=== PATIENT | male | born 1945 | race Caucasian/White ===

== ENCOUNTER 2021-10-02 18:46 | Inpatient (IN) | payer MEDICARE ==
[2021-10-02] MEDS ORDERED: Clindamycin/D5W 900 mg/50 ml Premix Bag ONE (19:26)
[2021-10-02] MEDS ORDERED: Morphine 4 MG/ML VIAL ONE (19:26)
[2021-10-02] MEDS ORDERED: Ondansetron PF 4 MG/2 ML Vial ONE (19:26)
[2021-10-02 19:50] LABS: #Basophils 0.1 thou/uL (0.0-0.2); #Lymphocytes 0.6 thou/uL (1.20-3.40); #Monocytes 1.6 thou/uL (0.11-0.59); #Neutrophils 16.4 thou/uL (1.40-6.50); %Basophils 0.5 % (0.0-1.0); %Eosinophils 0.1 % (0.0-10.0); %Lymphocytes 3.3 % (21.0-51.0); %Monocytes 8.7 % (0.0-10.0); %Neutrophils 87.5 % (42.0-75.0); Mean Corpuscular HGB CONC 32.2 g/dL (32.0-36.0); Mean Corpuscular Hemoglobin 29.6 pg (27.0-31.0); Mean Corpuscular Volume 91.8 fL (78.0-98.0); Mean Platelet Volume 7.9 fL (7.4-10.4); Platelet Count 222 thou/uL (130-400); RBC Distribution Width 13.8 % (11.5-14.5); Red Blood Cell (RBC) Count 5.41 mill/uL (4.70-6.10); White Blood Cell (WBC) Count 18.7 thou/uL (4.8-10.8)
[2021-10-02 20:12] LABS: ALT (SGPT) 44 U/L (8-55); AST (SGOT) 32 U/L (5-34); Alkaline Phosphatase 139 U/L (40-110); Anion Gap 22 mmol/L (10-20); BUN (Urea Nitrogen) 102 mg/dL (8.4-25.7); Bilirubin, Total 0.9 mg/dL (0.2-1.2); Calc. Creatinine Clearance 0 mL/min (70-130); Calcium 10.1 mg/dL (7.8-10.44); Carbon Dioxide 19 mmol/L (23-31); Chloride 101 mmol/L (98-107); Globulin 4.9 g/dL (2.4-3.5); Glucose 171 mg/dL (83-110); Protein, Total 8.9 g/dL (5.8-8.1); Sodium 137 mmol/L (136-145)
[2021-10-02] MEDS ORDERED: Cefepime 2 GM VIAL ONE (20:32)
[2021-10-02 20:40] LABS: Bilirubin Negative (Negative); Blood, Urine 2+ (Negative); Clarity Extra Turbid (Clear); Glucose, Urine (Dipstick) Normal (Negative); Ketone, Urine Negative (Negative); Leukocyte 500 Leu/uL (Negative); Nitrite Negative (Negative); Protein, Urine (Dipstick) 100 mg/dL (Neg-Trace); Squamous Epithelial None Seen HPF (0-3); Urobilinogen Normal mg/dL (Less than 2); pH, Urine 5.5 (5.0-9.0)
[2021-10-02 20:48] LABS: Bacteria/HPF 2+ HPF (None Seen); WBC/HPF Greater than 50 HPF (0-3)
[2021-10-02] MEDS ORDERED: Vancomycin 1 GM/200 ML BAG ONE (21:29)
[2021-10-02 22:57] LABS: Lactic Acid 1.7 mmol/L (0.5-2.2)
[2021-10-03] MEDS ORDERED: traMADol HCl 50 MG TAB PO SCH (02:13)
[2021-10-03 02:32] LABS: SARS-CoV-2 NAA Rapid Test Not Detected (NotDetected)
[2021-10-03] MEDS ORDERED: Dextrose 50% Abboject 50 ML SYRINGE SLOW IVP PRN (03:38)
[2021-10-03] MEDS ORDERED: Dextrose 5% in Water 1,000 ML IV PRN (03:38)
[2021-10-03] MEDS ORDERED: Ondansetron ODT 4 MG TAB PO PRN (03:40)
[2021-10-03] MEDS ORDERED: Ondansetron PF 4 MG/2 ML Vial IVP PRN (03:40)
[2021-10-03] MEDS ORDERED: Acetaminophen 650 MG Suppository PR PRN (03:40)
[2021-10-03] MEDS ORDERED: Senokot S 8.6-50 MG TAB PO PRN (03:40)
[2021-10-03] MEDS ORDERED: Acetaminophen 325 MG TAB PO PRN (03:40)
[2021-10-03] MEDS ORDERED: Vancomycin HCl 750 MG in Sodium Chloride 0.9% 250 ML 250 ML IVPB SCH (04:00)
[2021-10-03 04:24] LABS: SARS-CoV-2 NAA Rapid Test Not Detected (NotDetected)
[2021-10-03 06:24] LABS: Hemoglobin A1c 11.1 % (4.0-6.0)
[2021-10-03] MEDS ORDERED: Sodium Bicarbonate 75 MEQ in Sodium Chloride 0.45% 1,000 ML IV SCH (07:30)
[2021-10-03] MEDS: Famotidine/PF 20 mg/2ml Vial SLOW IVP SCH (09:19)
[2021-10-03] MEDS: Heparin 5,000 UNITS/ML VIAL SC SCH ×2 (09:19→19:59)
[2021-10-03 14:21] LABS: Hemoglobin 13.4 g/dL (14.0-18.0); Mean Corpuscular HGB CONC 32.8 g/dL (32.0-36.0); Mean Corpuscular Hemoglobin 30.1 pg (27.0-31.0); Mean Corpuscular Volume 91.7 fL (78.0-98.0); Mean Platelet Volume 8.2 fL (7.4-10.4); Platelet Count 173 thou/uL (130-400); RBC Distribution Width 13.9 % (11.5-14.5); Red Blood Cell (RBC) Count 4.45 mill/uL (4.70-6.10); White Blood Cell (WBC) Count 18.4 thou/uL (4.8-10.8)
[2021-10-03 14:34] LABS: Phosphorus 5.6 mg/dL (2.3-4.7)
[2021-10-03 14:47] LABS: Band 13 % (5-11); Lymphocytes 7 % (21-51); MDiff Complete? YES; Monocytes 6 % (0-10); Neutrophil 74 % (42-75); Platelet Morphology Comment Appears Adequate; RBC Morphology Normal
[2021-10-03 14:59] LABS: ALT (SGPT) 32 U/L (8-55); AST (SGOT) 28 U/L (5-34); Alkaline Phosphatase 109 U/L (40-110); Anion Gap 20 mmol/L (10-20); BUN (Urea Nitrogen) 113 mg/dL (8.4-25.7); Bilirubin, Total 0.5 mg/dL (0.2-1.2); Calc. Creatinine Clearance 0 mL/min (70-130); Calcium 8.2 mg/dL (7.8-10.44); Carbon Dioxide 16 mmol/L (23-31); Chloride 105 mmol/L (98-107); Globulin 3.6 g/dL (2.4-3.5); Glucose 200 mg/dL (83-110); Magnesium 2.1 mg/dL (1.6-2.6); Potassium 5.8 mmol/L (3.5-5.1); Protein, Total 6.6 g/dL (5.8-8.1); Sodium 135 mmol/L (136-145)
[2021-10-03] MEDS ORDERED: Dextrose 50% Abboject 50 ML SYRINGE SLOW IVP SCH (16:53)
[2021-10-03] MEDS ORDERED: Insulin Regular 300 UNITS/3 ML VIAL IVP SCH (16:54)
[2021-10-03] MEDS ORDERED: Sodium Bicarbonate 150 MEQ in Sterile Water Injection 1,000 ML IV SCH (17:00)
[2021-10-03] MEDS: Sodium Bicarbonate 150 MEQ in Sterile Water Injection 1,000 ML IV SCH (18:43)
[2021-10-03] MEDS: Cefepime 1 GM in Sodium Chloride 0.9% 100 ML IVPB SCH (20:00)
[2021-10-03] MEDS ORDERED: traMADol HCl 50 MG TAB PO PRN (21:39)
[2021-10-03] MEDS ORDERED: HYDROcodone/Acetaminophen 5/325 mg Tablet PO SCH (22:30)
[2021-10-03 22:39] LABS: Anion Gap 19 mmol/L (10-20); BUN (Urea Nitrogen) 108 mg/dL (8.4-25.7); Calc. Creatinine Clearance 0 mL/min (70-130); Carbon Dioxide 21 mmol/L (23-31); Chloride 102 mmol/L (98-107); Glucose 122 mg/dL (83-110); Potassium 4.3 mmol/L (3.5-5.1); Sodium 138 mmol/L (136-145)
[2021-10-04 07:00] LABS: #Eosinphils 0.2 thou/uL (0.0-0.7); #Lymphocytes 0.7 thou/uL (1.20-3.40); #Neutrophils 10.4 thou/uL (1.40-6.50); %Basophils 0.2 % (0.0-1.0); %Eosinophils 1.6 % (0.0-10.0); %Lymphocytes 5.7 % (21.0-51.0); %Monocytes 8.1 % (0.0-10.0); %Neutrophils 84.5 % (42.0-75.0); Hemoglobin 13.1 g/dL (14.0-18.0); Mean Corpuscular HGB CONC 32.2 g/dL (32.0-36.0); Mean Corpuscular Hemoglobin 29.6 pg (27.0-31.0); Mean Platelet Volume 7.9 fL (7.4-10.4); Platelet Count 176 thou/uL (130-400); RBC Distribution Width 13.9 % (11.5-14.5); Red Blood Cell (RBC) Count 4.41 mill/uL (4.70-6.10); White Blood Cell (WBC) Count 12.4 thou/uL (4.8-10.8)
[2021-10-04 07:19] LABS: ALT (SGPT) 44 U/L (8-55); AST (SGOT) 51 U/L (5-34); Albumin 2.8 g/dL (3.4-4.8); Alkaline Phosphatase 124 U/L (40-110); Anion Gap 21 mmol/L (10-20); BUN (Urea Nitrogen) 105 mg/dL (8.4-25.7); Bilirubin, Total 0.5 mg/dL (0.2-1.2); Calc. Creatinine Clearance 26 mL/min (70-130); Calcium 7.8 mg/dL (7.8-10.44); Carbon Dioxide 23 mmol/L (23-31); Chloride 99 mmol/L (98-107); Globulin 3.6 g/dL (2.4-3.5); Glucose 144 mg/dL (83-110); Potassium 3.9 mmol/L (3.5-5.1); Protein, Total 6.4 g/dL (5.8-8.1); Sodium 139 mmol/L (136-145)
[2021-10-04] MEDS: Heparin 5,000 UNITS/ML VIAL SC SCH ×2 (09:07→21:29)
[2021-10-04] MEDS: Famotidine/PF 20 mg/2ml Vial SLOW IVP SCH (09:07)
[2021-10-04] MEDS: Vancomycin 1 GM in Premix Bag 1 BAG IVPB SCH (09:07)
[2021-10-04] MEDS: Sodium Bicarbonate 150 MEQ in Sterile Water Injection 1,000 ML IV SCH ×2 (12:46→22:08)
[2021-10-04] MEDS: HYDROcodone/Acetaminophen 5/325 mg Tablet PO PRN (16:13)
[2021-10-04] MEDS: HumaLOG 300 UNITS/3 ML VIAL SC PRN (16:15)
[2021-10-04] MEDS: Cefepime 1 GM in Sodium Chloride 0.9% 100 ML IVPB SCH (21:30)
[2021-10-05] MEDS ORDERED: Sodium Bicarbonate 150 MEQ in Sterile Water Injection 1,000 ML IV SCH ×2 (09:00→13:44)
[2021-10-05] MEDS ORDERED: Piperacillin/Tazobactam 3.375 GM in Sodium Chloride 0.9% 100 ML IVPB SCH ×3 (09:00→14:00)
[2021-10-05] MEDS: Heparin 5,000 UNITS/ML VIAL SC SCH ×2 (10:03→21:46)
[2021-10-05] MEDS: Famotidine/PF 20 mg/2ml Vial SLOW IVP SCH (10:04)
[2021-10-05] MEDS: Vancomycin 1 GM in Premix Bag 1 BAG IVPB SCH (10:04)
[2021-10-05] MEDS: HumaLOG 300 UNITS/3 ML VIAL SC PRN ×3 (12:02→21:47)
[2021-10-05 12:17] LABS: Albumin 2.8 g/dL (3.4-4.8); Anion Gap 21 mmol/L (10-20); BUN (Urea Nitrogen) 91 mg/dL (8.4-25.7); BUN/Creatinine Ratio 32.85; Calc. Creatinine Clearance 29 mL/min (70-130); Calcium 7.9 mg/dL (7.8-10.44); Carbon Dioxide 28 mmol/L (23-31); Chloride 95 mmol/L (98-107); Glucose 177 mg/dL (83-110); Phosphorus 3.8 mg/dL (2.3-4.7); Potassium 3.7 mmol/L (3.5-5.1); Sodium 140 mmol/L (136-145)
[2021-10-05] MEDS: Lactated Ringer's 1,000 ML IV SCH (16:32)
[2021-10-05] MEDS: Carvedilol 3.125 MG TAB PO SCH (16:56)
[2021-10-05] MEDS ORDERED: Carvedilol 3.125 MG TAB PO SCH (17:00)
[2021-10-05] MEDS: Atorvastatin Calcium 40 MG TAB PO SCH (21:47)
[2021-10-06] MEDS ORDERED: Lorazepam 2 MG/ML VIAL SLOW IVP SCH (00:45)
[2021-10-06] MEDS ORDERED: OLANZapine 10 MG VIAL IM SCH (04:00)
[2021-10-06] MEDS ORDERED: Sterile Water 10 ML VIAL FS PRN (04:00)
[2021-10-06 05:28] LABS: #Eosinphils 0.1 thou/uL (0.0-0.7); #Lymphocytes 1.1 thou/uL (1.20-3.40); #Neutrophils 10.3 thou/uL (1.40-6.50); %Basophils 0.4 % (0.0-1.0); %Eosinophils 0.4 % (0.0-10.0); %Monocytes 7.9 % (0.0-10.0); %Neutrophils 82.3 % (42.0-75.0); Hemoglobin 13.7 g/dL (14.0-18.0); Mean Corpuscular Hemoglobin 29.5 pg (27.0-31.0); Mean Platelet Volume 7.7 fL (7.4-10.4); Platelet Count 179 thou/uL (130-400); RBC Distribution Width 13.8 % (11.5-14.5); Red Blood Cell (RBC) Count 4.65 mill/uL (4.70-6.10); White Blood Cell (WBC) Count 12.5 thou/uL (4.8-10.8)
[2021-10-06 05:40] LABS: Albumin 2.8 g/dL (3.4-4.8); Anion Gap 24 mmol/L (10-20); BUN (Urea Nitrogen) 87 mg/dL (8.4-25.7); BUN/Creatinine Ratio 34.66; Calc. Creatinine Clearance 32 mL/min (70-130); Carbon Dioxide 24 mmol/L (23-31); Chloride 99 mmol/L (98-107); Glucose 180 mg/dL (83-110); Phosphorus 3.6 mg/dL (2.3-4.7); Potassium 3.9 mmol/L (3.5-5.1); Sodium 143 mmol/L (136-145)
[2021-10-06] MEDS: HumaLOG 300 UNITS/3 ML VIAL SC PRN (07:31)
[2021-10-06] MEDS ORDERED: Carvedilol 3.125 MG TAB PO SCH (08:38)
[2021-10-06] MEDS ORDERED: Carvedilol 6.25 MG TAB PO SCH (08:45)
[2021-10-06] MEDS: Vancomycin 1 GM in Premix Bag 1 BAG IVPB SCH (10:50)
[2021-10-06] MEDS: HYDROcodone/Acetaminophen 5/325 mg Tablet PO PRN ×2 (10:51→20:19)
[2021-10-06] MEDS: Famotidine/PF 20 mg/2ml Vial SLOW IVP SCH (10:51)
[2021-10-06] MEDS: Aspirin 81 mg Enteric Coated Tablet PO SCH (10:55)
[2021-10-06] MEDS: Lactated Ringer's 1,000 ML IV SCH ×2 (10:55→23:05)
[2021-10-06] MEDS: Carvedilol 3.125 MG TAB PO SCH (10:57)
[2021-10-06] MEDS: Heparin 5,000 UNITS/ML VIAL SC SCH ×2 (10:59→20:20)
[2021-10-06] MEDS: Atorvastatin Calcium 40 MG TAB PO SCH (20:19)
[2021-10-06] MEDS: Lantus 1000 UNITS/10 ML VIAL SC SCH (20:30)
[2021-10-06] MEDS: Carvedilol 6.25 MG TAB PO SCH (21:01)
[2021-10-07] MEDS: HYDROcodone/Acetaminophen 5/325 mg Tablet PO PRN ×2 (02:45→19:53)
[2021-10-07 05:12] LABS: #Basophils 0.1 thou/uL (0.0-0.2); #Eosinphils 0.3 thou/uL (0.0-0.7); #Lymphocytes 1.2 thou/uL (1.20-3.40); #Monocytes 0.8 thou/uL (0.11-0.59); %Basophils 0.4 % (0.0-1.0); %Eosinophils 2.4 % (0.0-10.0); %Lymphocytes 8.8 % (21.0-51.0); %Monocytes 5.8 % (0.0-10.0); %Neutrophils 82.7 % (42.0-75.0); Hemoglobin 13.2 g/dL (14.0-18.0); Mean Corpuscular HGB CONC 31.4 g/dL (32.0-36.0); Mean Corpuscular Hemoglobin 29.7 pg (27.0-31.0); Mean Corpuscular Volume 94.7 fL (78.0-98.0); Mean Platelet Volume 7.8 fL (7.4-10.4); Platelet Count 177 thou/uL (130-400); RBC Distribution Width 13.7 % (11.5-14.5); Red Blood Cell (RBC) Count 4.46 mill/uL (4.70-6.10); White Blood Cell (WBC) Count 13.3 thou/uL (4.8-10.8)
[2021-10-07 05:29] LABS: Anion Gap 17 mmol/L (10-20); BUN (Urea Nitrogen) 72 mg/dL (8.4-25.7); BUN/Creatinine Ratio 33.18; Calc. Creatinine Clearance 39 mL/min (70-130); Calcium 8.3 mg/dL (7.8-10.44); Carbon Dioxide 31 mmol/L (23-31); Chloride 102 mmol/L (98-107); Glucose 229 mg/dL (83-110); Phosphorus 3.3 mg/dL (2.3-4.7); Potassium 4.2 mmol/L (3.5-5.1); Sodium 146 mmol/L (136-145)
[2021-10-07] MEDS: HumaLOG 300 UNITS/3 ML VIAL SC PRN ×2 (05:44→21:43)
[2021-10-07] MEDS: Carvedilol 6.25 MG TAB PO SCH ×2 (09:29→21:53)
[2021-10-07] MEDS: Aspirin 81 mg Enteric Coated Tablet PO SCH (09:30)
[2021-10-07] MEDS: Heparin 5,000 UNITS/ML VIAL SC SCH ×2 (09:31→21:38)
[2021-10-07] MEDS: Famotidine/PF 20 mg/2ml Vial SLOW IVP SCH (09:31)
[2021-10-07] MEDS: Vancomycin 1 GM in Premix Bag 1 BAG IVPB SCH (09:32)
[2021-10-07] MEDS ORDERED: ePHEDrine 50 MG/ML VIAL ONE (11:00)
[2021-10-07] MEDS ORDERED: PROPOFOL 200 MG/20 ML VIAL ONE (11:00)
[2021-10-07] MEDS: Lactated Ringer's 1,000 ML IV SCH (16:29)
[2021-10-07] MEDS ORDERED: Lorazepam 0.5 MG TAB PO SCH (20:57)
[2021-10-07] MEDS: Lantus 1000 UNITS/10 ML VIAL SC SCH (21:42)
[2021-10-07] MEDS: Atorvastatin Calcium 40 MG TAB PO SCH (21:44)
[2021-10-07] MEDS: Phenazopyridine HCl 100 MG TAB PO PRN (22:55)
[2021-10-07] MEDS ORDERED: Sterile Water 10 ML VIAL FS PRN (23:45)
[2021-10-07] MEDS ORDERED: OLANZapine 10 MG VIAL IM SCH (23:45)
[2021-10-08] MEDS: HYDROcodone/Acetaminophen 5/325 mg Tablet PO PRN ×5 (00:19→22:37)
[2021-10-08] MEDS: Lactated Ringer's 1,000 ML IV SCH ×4 (05:47→15:33)
[2021-10-08] MEDS: HumaLOG 300 UNITS/3 ML VIAL SC PRN ×2 (05:53→20:33)
[2021-10-08 11:21] LABS: #Eosinphils 0.2 thou/uL (0.0-0.7); #Lymphocytes 1.8 thou/uL (1.20-3.40); #Monocytes 0.7 thou/uL (0.11-0.59); #Neutrophils 7.8 thou/uL (1.40-6.50); %Basophils 0.4 % (0.0-1.0); %Eosinophils 2.4 % (0.0-10.0); %Lymphocytes 16.7 % (21.0-51.0); %Monocytes 6.7 % (0.0-10.0); %Neutrophils 73.8 % (42.0-75.0); Hemoglobin 13.4 g/dL (14.0-18.0); Mean Corpuscular HGB CONC 30.3 g/dL (32.0-36.0); Mean Corpuscular Hemoglobin 28.9 pg (27.0-31.0); Mean Corpuscular Volume 95.5 fL (78.0-98.0); Mean Platelet Volume 7.6 fL (7.4-10.4); Platelet Count 150 thou/uL (130-400); RBC Distribution Width 13.6 % (11.5-14.5); Red Blood Cell (RBC) Count 4.63 mill/uL (4.70-6.10); White Blood Cell (WBC) Count 10.5 thou/uL (4.8-10.8)
[2021-10-08 11:38] LABS: Vancomycin, Trough 13.6 ug/mL
[2021-10-08 11:40] LABS: Anion Gap 15 mmol/L (10-20); BUN (Urea Nitrogen) 64 mg/dL (8.4-25.7); BUN/Creatinine Ratio 31.07; Calc. Creatinine Clearance 42 mL/min (70-130); Calcium 8.1 mg/dL (7.8-10.44); Carbon Dioxide 32 mmol/L (23-31); Chloride 101 mmol/L (98-107); Glucose 134 mg/dL (83-110); Phosphorus 3.4 mg/dL (2.3-4.7); Potassium 3.7 mmol/L (3.5-5.1); Sodium 144 mmol/L (136-145)
[2021-10-08] MEDS: Heparin 5,000 UNITS/ML VIAL SC SCH ×2 (11:46→20:33)
[2021-10-08] MEDS: Famotidine/PF 20 mg/2ml Vial SLOW IVP SCH (11:48)
[2021-10-08] MEDS: Aspirin 81 mg Enteric Coated Tablet PO SCH (11:48)
[2021-10-08] MEDS: Vancomycin 1 GM in Premix Bag 1 BAG IVPB SCH (11:50)
[2021-10-08] MEDS ORDERED: Vancomycin 1 GM in Premix Bag 1 BAG IVPB SCH ×2 (12:30→16:00)
[2021-10-08] MEDS: Carvedilol 6.25 MG TAB PO SCH (13:34)
[2021-10-08] MEDS: Carvedilol 25 MG TAB PO SCH (16:26)
[2021-10-08] MEDS: Lantus 1000 UNITS/10 ML VIAL SC SCH (20:33)
[2021-10-08] MEDS: Atorvastatin Calcium 40 MG TAB PO SCH (20:34)
[2021-10-08] MEDS: Sodium Chloride 0.9% 1,000 ML IV SCH (20:34)
[2021-10-08] MEDS: Famotidine 20 MG TAB PO SCH (20:34)
[2021-10-09] MEDS: HYDROcodone/Acetaminophen 5/325 mg Tablet PO PRN ×3 (03:25→17:57)
[2021-10-09] MEDS: Sodium Chloride 0.9% 1,000 ML IV SCH ×2 (05:38→17:58)
[2021-10-09 06:05] LABS: Albumin 2.8 g/dL (3.4-4.8); Anion Gap 19 mmol/L (10-20); BUN (Urea Nitrogen) 64 mg/dL (8.4-25.7); BUN/Creatinine Ratio 27.59; Calc. Creatinine Clearance 38 mL/min (70-130); Calcium 7.8 mg/dL (7.8-10.44); Carbon Dioxide 25 mmol/L (23-31); Chloride 102 mmol/L (98-107); Glucose 266 mg/dL (83-110); Phosphorus 3.6 mg/dL (2.3-4.7); Potassium 4.6 mmol/L (3.5-5.1); Sodium 141 mmol/L (136-145)
[2021-10-09] MEDS: HumaLOG 300 UNITS/3 ML VIAL SC PRN (06:23)
[2021-10-09 09:22] LABS: Hemoglobin 13.1 g/dL (14.0-18.0); Mean Corpuscular HGB CONC 30.9 g/dL (32.0-36.0); Mean Corpuscular Hemoglobin 29.5 pg (27.0-31.0); Mean Corpuscular Volume 95.5 fL (78.0-98.0); Mean Platelet Volume 7.7 fL (7.4-10.4); Platelet Count 157 thou/uL (130-400); RBC Distribution Width 13.7 % (11.5-14.5); Red Blood Cell (RBC) Count 4.45 mill/uL (4.70-6.10); White Blood Cell (WBC) Count 14.8 thou/uL (4.8-10.8)
[2021-10-09] MEDS ORDERED: Lantus 1000 UNITS/10 ML VIAL SC SCH (09:45)
[2021-10-09] MEDS: Carvedilol 25 MG TAB PO SCH ×3 (09:48→18:00)
[2021-10-09] MEDS: Aspirin 81 mg Enteric Coated Tablet PO SCH (09:49)
[2021-10-09] MEDS: Heparin 5,000 UNITS/ML VIAL SC SCH ×2 (09:49→20:36)
[2021-10-09 10:34] LABS: #Basophils 0.1 thou/uL (0.0-0.2); #Eosinphils 0.4 thou/uL (0.0-0.7); #Lymphocytes 2.2 thou/uL (1.20-3.40); #Neutrophils 11.1 thou/uL (1.40-6.50); %Basophils 0.4 % (0.0-1.0); %Eosinophils 2.8 % (0.0-10.0); %Lymphocytes 15.1 % (21.0-51.0); %Monocytes 6.5 % (0.0-10.0); %Neutrophils 75.3 % (42.0-75.0)
[2021-10-09 10:35] LABS: Band 3 % (5-11); Eosinophils 5 % (0-10); Lymphocytes 18 % (21-51); MDiff Complete? YES; Monocytes 6 % (0-10); Neutrophil 68 % (42-75); RBC Morphology Normal
[2021-10-09 18:47] LABS: SARS-CoV-2 PCR by NAA Not Detected (NotDetected)
[2021-10-09] MEDS: Famotidine 20 MG TAB PO SCH (20:36)
[2021-10-09] MEDS: Atorvastatin Calcium 40 MG TAB PO SCH (20:36)
[2021-10-09 21:23] LABS: Vancomycin, Random 14.9 ug/mL (See Comment)
[2021-10-09] MEDS ORDERED: Vancomycin HCl 750 MG in Sodium Chloride 0.9% 250 ML 250 ML IVPB SCH (22:00)
[2021-10-10] MEDS: HYDROcodone/Acetaminophen 5/325 mg Tablet PO PRN ×3 (00:09→23:28)
[2021-10-10] MEDS: Sodium Chloride 0.9% 1,000 ML IV SCH ×3 (05:07→21:26)
[2021-10-10] MEDS ORDERED: Lantus 1000 UNITS/10 ML VIAL SC SCH (09:00)
[2021-10-10] MEDS: Aspirin 81 mg Enteric Coated Tablet PO SCH (09:05)
[2021-10-10] MEDS: Carvedilol 25 MG TAB PO SCH ×2 (09:05→16:43)
[2021-10-10] MEDS: Phenazopyridine HCl 100 MG TAB PO PRN (09:05)
[2021-10-10] MEDS ORDERED: Xylocaine 1% w/ Epi 1:100K 10 ML VIAL ONE (12:23)
[2021-10-10] MEDS ORDERED: Bupivacaine PF 0.5% 30 ML VIAL ONE (12:23)
[2021-10-10] MEDS ORDERED: Fentanyl 100 MCG/2 ML VIAL ONE (12:25)
[2021-10-10] MEDS ORDERED: Ondansetron PF 4 MG/2 ML Vial ONE (12:46)
[2021-10-10] MEDS ORDERED: PROPOFOL 200 MG/20 ML VIAL ONE (12:46)
[2021-10-10] MEDS ORDERED: PHENYLEPHRINE-NS 100 MCG/ML 10 ML SYRINGE ONE (12:46)
[2021-10-10] MEDS ORDERED: ePHEDrine 50 MG/ML VIAL ONE (12:46)
[2021-10-10] MEDS ORDERED: Lidocaine 1% PF 5 ML VIAL ONE (12:46)
[2021-10-10] MEDS ORDERED: Promethazine HCl 25 MG/ML VIAL IM PRN (14:12)
[2021-10-10] MEDS ORDERED: Ondansetron HCl/PF 4 MG/2 ML Vial IVP PRN (14:12)
[2021-10-10] MEDS ORDERED: Promethazine HCl 25 MG/ML VIAL IVPB PRN (14:12)
[2021-10-10] MEDS: Fentanyl 100 MCG/2 ML VIAL SLOW IVP PRN ×2 (16:31→21:25)
[2021-10-10] MEDS: Famotidine 20 MG TAB PO SCH (21:24)
[2021-10-10] MEDS: Atorvastatin Calcium 40 MG TAB PO SCH (21:24)
[2021-10-10] MEDS: Heparin 5,000 UNITS/ML VIAL SC SCH (21:24)
[2021-10-10 22:11] LABS: #Basophils 0.1 thou/uL (0.0-0.2); #Eosinphils 0.2 thou/uL (0.0-0.7); #Lymphocytes 1.4 thou/uL (1.20-3.40); #Monocytes 0.8 thou/uL (0.11-0.59); #Neutrophils 11.1 thou/uL (1.40-6.50); %Basophils 0.6 % (0.0-1.0); %Eosinophils 1.4 % (0.0-10.0); %Monocytes 5.7 % (0.0-10.0); %Neutrophils 82.3 % (42.0-75.0); Hemoglobin 12.1 g/dL (14.0-18.0); Mean Corpuscular HGB CONC 32.6 g/dL (32.0-36.0); Mean Corpuscular Hemoglobin 30.6 pg (27.0-31.0); Mean Corpuscular Volume 93.9 fL (78.0-98.0); Mean Platelet Volume 7.7 fL (7.4-10.4); Platelet Count 135 thou/uL (130-400); RBC Distribution Width 13.8 % (11.5-14.5); Red Blood Cell (RBC) Count 3.96 mill/uL (4.70-6.10); White Blood Cell (WBC) Count 13.5 thou/uL (4.8-10.8)
[2021-10-10 22:25] LABS: Vancomycin, Random 15.9 ug/mL (See Comment)
[2021-10-10 22:26] LABS: Anion Gap 19 mmol/L (10-20); BUN (Urea Nitrogen) 54 mg/dL (8.4-25.7); Calc. Creatinine Clearance 39 mL/min (70-130); Calcium 7.5 mg/dL (7.8-10.44); Carbon Dioxide 23 mmol/L (23-31); Chloride 109 mmol/L (98-107); Glucose 125 mg/dL (83-110); Potassium 4.5 mmol/L (3.5-5.1); Sodium 146 mmol/L (136-145)
[2021-10-10 22:29] LABS: Albumin 2.8 g/dL (3.4-4.8); Anion Gap 22 mmol/L (10-20); BUN (Urea Nitrogen) 52 mg/dL (8.4-25.7); BUN/Creatinine Ratio 22.32; Calc. Creatinine Clearance 38 mL/min (70-130); Calcium 7.5 mg/dL (7.8-10.44); Carbon Dioxide 19 mmol/L (23-31); Chloride 109 mmol/L (98-107); Glucose 128 mg/dL (83-110); Phosphorus 3.9 mg/dL (2.3-4.7); Potassium 4.7 mmol/L (3.5-5.1); Sodium 145 mmol/L (136-145)
[2021-10-10] MEDS ORDERED: Vancomycin HCl 750 MG in Sodium Chloride 0.9% 250 ML 250 ML IVPB SCH (23:00)
[2021-10-11] MEDS ORDERED: Sterile Water 10 ML VIAL FS PRN (00:30)
[2021-10-11] MEDS ORDERED: OLANZapine 10 MG VIAL IM SCH (00:45)
[2021-10-11] MEDS: Sodium Chloride 0.9% 1,000 ML IV SCH ×2 (05:30→09:51)
[2021-10-11] MEDS: Aspirin 81 mg Enteric Coated Tablet PO SCH (09:09)
[2021-10-11] MEDS: Heparin 5,000 UNITS/ML VIAL SC SCH ×2 (09:09→20:47)
[2021-10-11] MEDS: Carvedilol 25 MG TAB PO SCH ×2 (09:09→16:17)
[2021-10-11] MEDS: HYDROcodone/Acetaminophen 5/325 mg Tablet PO PRN ×3 (09:12→23:52)
[2021-10-11] MEDS ORDERED: Sodium Bicarbonate Tab 325 MG TAB PO SCH (09:30)
[2021-10-11] MEDS: Sodium Bicarbonate Tab 325 MG TAB PO SCH ×2 (16:17→20:48)
[2021-10-11 16:51] LABS: Magnesium 1.5 mg/dL (1.6-2.6)
[2021-10-11] MEDS ORDERED: cloNIDine 0.1 MG TAB PO PRN (17:41)
[2021-10-11] MEDS ORDERED: Magnesium Sulfate 2 GM in Sodium Chloride 0.9% 100 ML IVPB SCH (17:45)
[2021-10-11 17:47] LABS: Albumin 2.8 g/dL (3.4-4.8); Anion Gap 17 mmol/L (10-20); BUN (Urea Nitrogen) 53 mg/dL (8.4-25.7); BUN/Creatinine Ratio 22.94; Calc. Creatinine Clearance 39 mL/min (70-130); Calcium 7.2 mg/dL (7.8-10.44); Carbon Dioxide 22 mmol/L (23-31); Chloride 109 mmol/L (98-107); Glucose 198 mg/dL (83-110); Phosphorus 3.8 mg/dL (2.3-4.7); Potassium 3.9 mmol/L (3.5-5.1); Sodium 144 mmol/L (136-145)
[2021-10-11] MEDS ORDERED: Magnesium 2 GM/50 ML(in water) 2 GM in Premix Bag 1 BAG IVPB SCH (18:15)
[2021-10-11] MEDS: Atorvastatin Calcium 40 MG TAB PO SCH (20:47)
[2021-10-11] MEDS: Famotidine 20 MG TAB PO SCH (20:47)
[2021-10-11] MEDS: Nystatin Powder 15 GM BOT TOP SCH (20:48)
[2021-10-11 22:55] LABS: Vancomycin, Random 15.5 ug/mL (See Comment)
[2021-10-11] MEDS ORDERED: Vancomycin HCl 750 MG in Sodium Chloride 0.9% 250 ML 250 ML IVPB SCH (23:00)
[2021-10-12] MEDS ORDERED: Magnesium Oxide 400 MG TAB PO SCH (03:00)
[2021-10-12] MEDS: Sodium Chloride 0.9% 1,000 ML IV SCH ×2 (04:06→23:53)
[2021-10-12 05:25] LABS: #Eosinphils 0.2 thou/uL (0.0-0.7); #Lymphocytes 1.4 thou/uL (1.20-3.40); #Monocytes 0.5 thou/uL (0.11-0.59); #Neutrophils 9.9 thou/uL (1.40-6.50); %Basophils 0.4 % (0.0-1.0); %Eosinophils 1.4 % (0.0-10.0); %Lymphocytes 11.6 % (21.0-51.0); %Monocytes 4.4 % (0.0-10.0); %Neutrophils 82.2 % (42.0-75.0); Hemoglobin 11.7 g/dL (14.0-18.0); Mean Corpuscular HGB CONC 30.6 g/dL (32.0-36.0); Mean Corpuscular Hemoglobin 29.5 pg (27.0-31.0); Mean Corpuscular Volume 96.4 fL (78.0-98.0); Mean Platelet Volume 8.1 fL (7.4-10.4); Platelet Count 161 thou/uL (130-400); Red Blood Cell (RBC) Count 3.96 mill/uL (4.70-6.10)
[2021-10-12 05:45] LABS: Albumin 2.9 g/dL (3.4-4.8); Anion Gap 19 mmol/L (10-20); BUN (Urea Nitrogen) 49 mg/dL (8.4-25.7); BUN/Creatinine Ratio 21.49; Calc. Creatinine Clearance 40 mL/min (70-130); Calcium 7.4 mg/dL (7.8-10.44); Carbon Dioxide 20 mmol/L (23-31); Chloride 110 mmol/L (98-107); Glucose 200 mg/dL (83-110); Phosphorus 3.4 mg/dL (2.3-4.7); Potassium 4.3 mmol/L (3.5-5.1); Sodium 145 mmol/L (136-145)
[2021-10-12] MEDS: HumaLOG 300 UNITS/3 ML VIAL SC PRN ×2 (06:11→20:43)
[2021-10-12] MEDS: Aspirin 81 mg Enteric Coated Tablet PO SCH (08:47)
[2021-10-12] MEDS: Heparin 5,000 UNITS/ML VIAL SC SCH ×2 (08:48→20:42)
[2021-10-12] MEDS: Carvedilol 25 MG TAB PO SCH ×2 (08:53→16:41)
[2021-10-12] MEDS: HYDROcodone/Acetaminophen 5/325 mg Tablet PO PRN ×2 (09:47→16:43)
[2021-10-12] MEDS: Sodium Bicarbonate Tab 325 MG TAB PO SCH ×3 (11:04→20:42)
[2021-10-12] MEDS: Nystatin Powder 15 GM BOT TOP SCH ×2 (11:05→20:42)
[2021-10-12] MEDS: Vancomycin HCl 750 MG in Sodium Chloride 0.9% 250 ML 250 ML IVPB SCH (12:06)
[2021-10-12] MEDS: Atorvastatin Calcium 40 MG TAB PO SCH (20:41)
[2021-10-12] MEDS: Famotidine 20 MG TAB PO SCH (20:41)
[2021-10-12] MEDS ORDERED: Morphine 4 MG/ML VIAL SLOW IVP PRN (20:42)
[2021-10-13] MEDS ORDERED: Sterile Water 10 ML VIAL FS PRN ×2 (01:15→20:15)
[2021-10-13] MEDS ORDERED: OLANZapine 10 MG VIAL IM SCH ×2 (01:30→20:15)
[2021-10-13] MEDS: Aspirin 81 mg Enteric Coated Tablet PO SCH (07:44)
[2021-10-13] MEDS: Heparin 5,000 UNITS/ML VIAL SC SCH ×2 (07:45→20:38)
[2021-10-13] MEDS: Carvedilol 25 MG TAB PO SCH ×2 (07:45→20:42)
[2021-10-13] MEDS: Nystatin Powder 15 GM BOT TOP SCH ×2 (07:46→21:03)
[2021-10-13 08:19] LABS: #Basophils 0.1 thou/uL (0.0-0.2); #Eosinphils 0.1 thou/uL (0.0-0.7); #Lymphocytes 1.5 thou/uL (1.20-3.40); #Monocytes 0.5 thou/uL (0.11-0.59); #Neutrophils 7.7 thou/uL (1.40-6.50); %Basophils 0.9 % (0.0-1.0); %Eosinophils 1.2 % (0.0-10.0); %Lymphocytes 14.8 % (21.0-51.0); %Monocytes 5.3 % (0.0-10.0); %Neutrophils 77.8 % (42.0-75.0); Mean Corpuscular HGB CONC 32.4 g/dL (32.0-36.0); Mean Corpuscular Hemoglobin 30.4 pg (27.0-31.0); Mean Corpuscular Volume 93.8 fL (78.0-98.0); Mean Platelet Volume 8.2 fL (7.4-10.4); Platelet Count 180 thou/uL (130-400); RBC Distribution Width 14.1 % (11.5-14.5); Red Blood Cell (RBC) Count 3.96 mill/uL (4.70-6.10); White Blood Cell (WBC) Count 9.9 thou/uL (4.8-10.8)
[2021-10-13 08:43] LABS: Anion Gap 17 mmol/L (10-20); BUN (Urea Nitrogen) 56 mg/dL (8.4-25.7); Calc. Creatinine Clearance 38 mL/min (70-130); Calcium 7.6 mg/dL (7.8-10.44); Carbon Dioxide 23 mmol/L (23-31); Chloride 107 mmol/L (98-107); Glucose 134 mg/dL (83-110); Magnesium 1.5 mg/dL (1.6-2.6); Potassium 4.4 mmol/L (3.5-5.1); Sodium 143 mmol/L (136-145)
[2021-10-13] MEDS ORDERED: Magnesium 2 GM/50 ML(in water) 2 GM in Premix Bag 1 BAG IVPB SCH (09:15)
[2021-10-13] MEDS: Sodium Bicarbonate Tab 325 MG TAB PO SCH ×3 (11:38→20:37)
[2021-10-13] MEDS: Vancomycin HCl 750 MG in Sodium Chloride 0.9% 250 ML 250 ML IVPB SCH (19:17)
[2021-10-13] MEDS: HYDROcodone/Acetaminophen 5/325 mg Tablet PO PRN (20:34)
[2021-10-13] MEDS: Doxycycline 100 MG CAP PO SCH (20:36)
[2021-10-13] MEDS: Atorvastatin Calcium 40 MG TAB PO SCH (20:38)
[2021-10-13] MEDS: Rifampin 300 MG CAP PO SCH (20:38)
[2021-10-13] MEDS: Famotidine 20 MG TAB PO SCH (20:39)
[2021-10-14] MEDS: HYDROcodone/Acetaminophen 5/325 mg Tablet PO PRN ×3 (02:56→15:02)
[2021-10-14 04:39] LABS: #Basophils 0.1 thou/uL (0.0-0.2); #Eosinphils 0.1 thou/uL (0.0-0.7); #Lymphocytes 1.5 thou/uL (1.20-3.40); #Monocytes 0.7 thou/uL (0.11-0.59); #Neutrophils 11.6 thou/uL (1.40-6.50); %Basophils 0.4 % (0.0-1.0); %Eosinophils 0.5 % (0.0-10.0); %Lymphocytes 10.5 % (21.0-51.0); %Monocytes 4.8 % (0.0-10.0); %Neutrophils 83.7 % (42.0-75.0); Hemoglobin 10.6 g/dL (14.0-18.0); Mean Corpuscular HGB CONC 31.6 g/dL (32.0-36.0); Mean Corpuscular Hemoglobin 29.6 pg (27.0-31.0); Mean Corpuscular Volume 93.8 fL (78.0-98.0); Platelet Count 181 thou/uL (130-400); RBC Distribution Width 14.3 % (11.5-14.5); Red Blood Cell (RBC) Count 3.57 mill/uL (4.70-6.10); White Blood Cell (WBC) Count 13.8 thou/uL (4.8-10.8)
[2021-10-14 04:57] LABS: Anion Gap 16 mmol/L (10-20); BUN (Urea Nitrogen) 58 mg/dL (8.4-25.7); Calc. Creatinine Clearance 22 mL/min (70-130); Calcium 7.2 mg/dL (7.8-10.44); Carbon Dioxide 23 mmol/L (23-31); Chloride 109 mmol/L (98-107); Glucose 226 mg/dL (83-110); Potassium 4.3 mmol/L (3.5-5.1); Sodium 144 mmol/L (136-145)
[2021-10-14] MEDS ORDERED: Saccharomyces boulardii 250 MG CAP PO SCH (07:00)
[2021-10-14] MEDS ORDERED: Ergocalciferol 1.25 MG(50,000 UNITS) CAP PO SCH (09:00)
[2021-10-14 09:36] VITALS: BMI 17.2
[2021-10-14] MEDS: Heparin 5,000 UNITS/ML VIAL SC SCH (09:56)
[2021-10-14] MEDS: Rifampin 300 MG CAP PO SCH (09:56)
[2021-10-14] MEDS: Sodium Bicarbonate Tab 325 MG TAB PO SCH ×2 (09:56→14:54)
[2021-10-14] MEDS: Aspirin 81 mg Enteric Coated Tablet PO SCH (09:56)
[2021-10-14] MEDS: Doxycycline 100 MG CAP PO SCH (09:57)
[2021-10-14] MEDS: Carvedilol 25 MG TAB PO SCH ×2 (09:58→17:12)
[2021-10-14] MEDS: Nystatin Powder 15 GM BOT TOP SCH (09:59)
[2021-10-14] MEDS ORDERED: Calcium Carbonate 500 MG ChewTAB PO SCH (11:00)
[2021-10-14] MEDS: HumaLOG 300 UNITS/3 ML VIAL SC PRN ×2 (12:13→17:12)
[2021-10-14 15:50] VITALS: BP 113/52; TEMP 97.4
== END 2021-10-14 18:38 | DRG 854 ==
LOC: ERS 18:46 → SURG B 21:52 → OBSVTOIN 10-03 17:43 → 2NO 10-05 18:34
PROVIDERS: ADMIT Internal Medicine; ATTEND Internal Medicine
PROC: 0HBNXZZ Excision of Left Foot Skin, External Approach (ICD-10-PCS; 2021-10-03)
PROC: 3E03329 Introduction of Other Anti-infective into Peripheral Vein, Percutaneous Approach (ICD-10-PCS; 2021-10-03)
PROC: 0Y6N0ZB Detachment at Left Foot, Partial 2nd Ray, Open Approach (ICD-10-PCS; principal; 2021-10-10)
PROC: 0Y6N0ZC Detachment at Left Foot, Partial 3rd Ray, Open Approach (ICD-10-PCS; 2021-10-10)
PROC: 0JCR0ZZ Extirpation of Matter from Left Foot Subcutaneous Tissue and Fascia, Open Approach (ICD-10-PCS; 2021-10-10)
DX: A41.02 Sepsis due to Methicillin resistant Staphylococcus aureus (principal); I50.22 Chronic systolic (congestive) heart failure; Z66 Do not resuscitate; Z20.822 Contact with and (suspected) exposure to COVID-19; T83.511A Infection and inflammatory reaction due to indwelling urethral catheter, initial encounter; N30.00 Acute cystitis without hematuria; N17.9 Acute kidney failure, unspecified; E87.2 Acidosis; I13.0 Hypertensive heart and chronic kidney disease with heart failure and stage 1 through stage 4 chronic kidney disease, or unspecified chronic kidney disease; N13.8 Other obstructive and reflux uropathy; L02.612 Cutaneous abscess of left foot; L03.116 Cellulitis of left lower limb; E11.52 Type 2 diabetes mellitus with diabetic peripheral angiopathy with gangrene; N13.6 Pyonephrosis; I47.2 Ventricular tachycardia; F05 Delirium due to known physiological condition; A41.4 Sepsis due to anaerobes; E87.5 Hyperkalemia; E86.9 Volume depletion, unspecified; N18.30 Chronic kidney disease, stage 3 unspecified; E11.22 Type 2 diabetes mellitus with diabetic chronic kidney disease; E11.65 Type 2 diabetes mellitus with hyperglycemia; N40.1 Benign prostatic hyperplasia with lower urinary tract symptoms; R33.8 Other retention of urine; Y84.6 Urinary catheterization as the cause of abnormal reaction of the patient, or of later complication, without mention of misadventure at the time of the procedure; E11.621 Type 2 diabetes mellitus with foot ulcer; L97.529 Non-pressure chronic ulcer of other part of left foot with unspecified severity; E78.5 Hyperlipidemia, unspecified; K21.9 Gastro-esophageal reflux disease without esophagitis; H40.9 Unspecified glaucoma; F03.90 Unspecified dementia, unspecified severity, without behavioral disturbance, psychotic disturbance, mood disturbance, and anxiety; H54.8 Legal blindness, as defined in USA; I25.5 Ischemic cardiomyopathy; I95.2 Hypotension due to drugs; T50.2X5A Adverse effect of carbonic-anhydrase inhibitors, benzothiadiazides and other diuretics, initial encounter; S91.342A Puncture wound with foreign body, left foot, initial encounter; W22.8XXA Striking against or struck by other objects, initial encounter; I25.10 Atherosclerotic heart disease of native coronary artery without angina pectoris; C76.0 Malignant neoplasm of head, face and neck; E55.9 Vitamin D deficiency, unspecified; E83.42 Hypomagnesemia; Z88.8 Allergy status to other drugs, medicaments and biological substances; Z79.899 Other long term (current) drug therapy; Z79.84 Long term (current) use of oral hypoglycemic drugs; Z79.4 Long term (current) use of insulin; Z79.1 Long term (current) use of non-steroidal anti-inflammatories (NSAID)
CPT/HCPCS: 36415; 36416; 71045; 76770; 80048; 80053; 80069; 80202; 81015; 82010; 82306; 82550; 82570; 83036; 83605; 83735; 84100; 84145; 84156; 84300; 84540; 85025; 85652; 86140; 87040; 87077; 87086; 87149; 87186; 88305; 88311; 93005; 93306; 96365; 96367; 96375; 96376; A4217; G0378; J0692; J1644; J1815; J2060; J2270; J2358; J2405; J2543; J2704; J3010; J3370; J3475; J3490; J7050; J7120; Q0162; S0020; S0028; U0002; U0003; U0005

== ENCOUNTER 2021-10-16 15:31 | Emergency (ER) | payer MEDICARE | END 2021-10-16 18:10 | disposition home or self-care (01) | LOC: ERS 15:31 | DX: R06.02 Shortness of breath (principal); E11.22 Type 2 diabetes mellitus with diabetic chronic kidney disease; I12.9 Hypertensive chronic kidney disease with stage 1 through stage 4 chronic kidney disease, or unspecified chronic kidney disease; N18.30 Chronic kidney disease, stage 3 unspecified; K21.9 Gastro-esophageal reflux disease without esophagitis; Z79.82 Long term (current) use of aspirin; Z79.899 Other long term (current) drug therapy; Z20.822 Contact with and (suspected) exposure to COVID-19 | CPT/HCPCS: 71045; 99285; U0003; U0005 ==